=== PATIENT | female | born 1940 | race Caucasian/White ===

== ENCOUNTER 2019-01-02 12:42 | Emergency (ER) | payer OTHER ==
--- NOTE | 2019-01-02 13:05 | ED PDOC ---
HPI: Trauma/Fall - HPI Time Seen by Provider: 01/02/19 12:52 Chief Complaint (Nursing): Upper Extremity Problem/Injury Chief Complaint (Provider): Upper Extremity Problem/Injury History Per: Patient History/Exam Limitations: no limitations Onset/Duration Of Symptoms: Sudden Onset Injury Occurred (Timing): Just Before Arrival Additional Complaint(s): 78 year old female with no significant medical history, arrives to the emergency department status post fall while running on a treadmill at the gym prior to arrival. Patient states she fell onto her right side, striking the ground, and sustained injury to her face, right shoulder, and right elbow. She denies experiencing chest pain or palpations prior to event, nor, had loss of consciousness or dizziness at present. PCP: none provided Past Medical History Reviewed: Historical Data, Nursing Documentation, Vital Signs Vital Signs: Last Vital Signs Temp 98.1 F 01/02/19 12:48 Pulse 77 01/02/19 12:48 Resp 15 01/02/19 12:48 BP 130/81 01/02/19 12:48 Pulse Ox 97 01/02/19 12:48 - Medical History PMH: No Chronic Diseases - Family History Family History: States: Unknown Family Hx - Home Medications Home Medications: Ambulatory Orders Medication Instructions Recorded Acetaminophen with Codeine 1 tab PO Q8H #10 tab 01/02/19 [Tylenol with Codeine No. 3 300 mg-30 mg] - Allergies Allergies/Adverse Reactions: Allergies Allergy/AdvReac Type Severity Reaction Status Date / Time No Known Allergies Allergy Verified 01/02/19 12:46 Review of Systems ROS Statement: Except As Marked, All Systems Reviewed And Found Negative ENT: Positive for: Other (right facial pain) Cardiovascular: Negative for: Chest Pain, Palpitations Respiratory: Negative for: Shortness of Breath Musculoskeletal: Positive for: Shoulder Pain (right-sided), Arm Pain (right elbow) Neurological: Negative for: Dizziness (or LOC) Physical Exam - Reviewed Nursing Documentation Reviewed: Yes Vital Signs Reviewed: Yes - Physical Exam Eye Exam: Positive for: EOMI, PERRL, Periorbital swelling (right-sided), Periorbital tenderness (right-sided). Negative for: Other (palpable fracture) Neck: Positive for: Normal (without deformity), Painless ROM, Supple. Negative for: Pain On Movement Of Neck (posteriorly) Cardiovascular/Chest: Positive for: Regular Rate, Rhythm Respiratory: Positive for: Normal Breath Sounds. Negative for: Respiratory Distress Pulses-Radial (L): 2+ Pulses-Radial (R): 2+ Back: Negative for: Vertebral Tenderness (spinal), Other (hip tenderness or deformity) Extremity: Positive for: Tenderness (limited ROM of right shoulder), Swelling (right laterally epicondyle), Other (right shoulder abrasion). Negative for: Normal ROM, Deformity (or edema of right shoulder) Neurologic/Psych: Positive for: Alert, Oriented (x3). Negative for: Motor/Sensory Deficits - ECG O2 Sat by Pulse Oximetry: 97 (RA) Pulse Ox Interpretation: Normal Medical Decision Making Medical Decision Making: Time: 1300 Initial Plan: Will obtain imagings to rule fracture. * CT head * CT maxillofacial * Motrin 600mg PO * XR right elbow * XR pelvis * XR right shoulder Time: 1338 --CT head FINDINGS: HEMORRHAGE: No intracranial hemorrhage. BRAIN: Good corticomedullary differentiation is seen. Proportional, diffuse expansion of the ventriculosulcal and cisternal spaces is appreciated with white matter lucency compatible with diffuse cerebral atrophy and chronic microangiopathy. Dense calcifications are identified mildly at the bilateral basal ganglia. No suspicious extra-axial fluid collection is identified and the midline brain anatomy appears grossly nonfocal as imaged. There is no mass effect throughout. VENTRICLES: Unremarkable. No hydrocephalus. CALVARIUM: No destructive bony lesion or displaced fracture identified including through the skullbase. Limited right lateral periorbital soft tissue edema noted in subcutaneous facial fat. PARANASAL SINUSES: Unremarkable as visualized. No significant inflammatory changes. MASTOID AIR CELLS: Unremarkable as visualized. No inflammatory changes. OTHER FINDINGS: None. IMPRESSION: Mild age related neuro degenerative changes are appreciate which appear age- appropriate. No acute intracranial hemorrhage is identified, mass effect or cortical edema. Bilateral basal ganglia calcifications are identified. Incidental limited right lateral periorbital subcutaneous edema suspected. No u nderlying fracture identified or postseptal soft tissue pathology appreciable. Time: 1358 --CT maxillofacial FINDINGS: NASAL BONES: Unremarkable. ORBITS: Right lateral orbital postseptal soft tissue edema is seen without preseptal involvement. No related fracture. PARANASAL SINUSES/ MASTOIDS: Clear. MAXILLA: Fracture identified. Multiple apical abscess is seen related to the right 1st and 2nd molar roots with impacted 3rd molar identified. There is some resorption of bone related to multiple bilateral maxillary dental implants in this patient. MANDIBLE/ TEMPOROMANDIBULAR JOINTS: Resumption of bone seen related to multiple bilateral dental implants at the mandible. SKULL BASE: Unremarkable. TEMPORAL BONES: Middle ears and mastoid grossly unremarkable. OTHER FINDINGS: None. IMPRESSION: No definite fracture appreciated although limited right lateral postseptal orbital soft tissue edema is identified. Dental pathology as discussed above. Scribe Attestation: Documented by Sierra Garcia, acting as a scribe for Duane Palmer MD. Provider Scribe Attestation: All medical record entries made by the Scribe were at my direction and personally dictated by me. I have reviewed the chart and agree that the record accurately reflects my personal performance of the history, physical exam, medical decision making, and the department course for this patient. I have also personally directed, reviewed, and agree with the discharge instructions and disposition. Pt is aware of Dental pathology and is being followed by dentist for tx. Xray of clavicle reveals displaced fracture, no tenting of skin, no pneumothorax. Discussed with Dr. Fletcher, Pt to be placed in figure 8 clavicle strap and sling and can be followed as outpt. in office Disposition - Clinical Impression Clinical Impression: Clavicle fracture - Patient ED Disposition Is Patient to be Admitted: No Counseled Patient/Family Regarding: Studies Performed, Diagnosis, Need For Followup, Rx Given - Disposition Referrals: Jonathan Fletcher III, MD [Staff Provider] - Disposition: Routine/Home Disposition Time: 15:16 Condition: FAIR Prescriptions: Acetaminophen with Codeine [Tylenol with Codeine No. 3 300 mg-30 mg] 1 tab PO Q8H #10 tab Instructions: Clavicle Fracture Forms: [employer] (Malay)
--- NOTE | 2019-01-02 13:41 | CT ---
Date of service: 01/02/2019 PROCEDURE: CT HEAD WITHOUT CONTRAST. HISTORY: r/o bleed COMPARISON: None available. TECHNIQUE: Axial computed tomography images were obtained through the head/brain without intravenous contrast. Radiation dose: Total exam DLP = 863.0 mGy-cm. This CT exam was performed using one or more of the following dose reduction techniques: Automated exposure control, adjustment of the mA and/or kV according to patient size, and/or use of iterative reconstruction technique. FINDINGS: HEMORRHAGE: No intracranial hemorrhage. BRAIN: Good corticomedullary differentiation is seen. Proportional, diffuse expansion of the ventriculosulcal and cisternal spaces is appreciated with white matter lucency compatible with diffuse cerebral atrophy and chronic microangiopathy. Dense calcifications are identified mildly at the bilateral basal ganglia. No suspicious extra-axial fluid collection is identified and the midline brain anatomy appears grossly nonfocal as imaged. There is no mass effect throughout. VENTRICLES: Unremarkable. No hydrocephalus. CALVARIUM: No destructive bony lesion or displaced fracture identified including through the skullbase. Limited right lateral periorbital soft tissue edema noted in subcutaneous facial fat. PARANASAL SINUSES: Unremarkable as visualized. No significant inflammatory changes. MASTOID AIR CELLS: Unremarkable as visualized. No inflammatory changes. OTHER FINDINGS: None. IMPRESSION: Mild age related neuro degenerative changes are appreciate which appear age-appropriate. No acute intracranial hemorrhage is identified, mass effect or cortical edema. Bilateral basal ganglia calcifications are identified. Incidental limited right lateral periorbital subcutaneous edema suspected. No underlying fracture identified or postseptal soft tissue pathology appreciable.
--- NOTE | 2019-01-02 14:01 | CT ---
Date of service: 01/02/2019 PROCEDURE: CT MAXILLOFACIAL BONES WITHOUT CONTRAST HISTORY: trauma COMPARISON: None available. TECHNIQUE: Contiguous axial CT images of the maxillofacial bones were obtained. Coronal and sagittal reformats were generated. Radiation dose: Total exam DLP = 692.61 mGy-cm. This CT exam was performed using one or more of the following dose reduction techniques: Automated exposure control, adjustment of the mA and/or kV according to patient size, and/or use of iterative reconstruction technique. FINDINGS: NASAL BONES: Unremarkable. ORBITS: Right lateral orbital postseptal soft tissue edema is seen without preseptal involvement. No related fracture. PARANASAL SINUSES/ MASTOIDS: Clear. MAXILLA: Fracture identified. Multiple apical abscess is seen related to the right 1st and 2nd molar roots with impacted 3rd molar identified. There is some resorption of bone related to multiple bilateral maxillary dental implants in this patient. MANDIBLE/ TEMPOROMANDIBULAR JOINTS: Resumption of bone seen related to multiple bilateral dental implants at the mandible. SKULL BASE: Unremarkable. TEMPORAL BONES: Middle ears and mastoid grossly unremarkable. OTHER FINDINGS: None. IMPRESSION: No definite fracture appreciated although limited right lateral postseptal orbital soft tissue edema is identified. Dental pathology as discussed above.
[2019-01-02 15:52] VITALS: BP 130/78; PULSE 78; RESP 20; TEMP 97.6; O2SAT 98
--- NOTE | 2019-01-02 16:39 | RAD ---
Date of service: 01/02/2019 PROCEDURE: Radiographs of the Right Shoulder HISTORY: trauma COMPARISON: January 02, 2019 FINDINGS: BONES: Fracture midshaft right clavicle. Approximately 1 shaft's with overriding noted. Foreshortening of approximately 4 cm noted. No appreciable angulation identified. JOINTS: Normal. Glenohumeral and acromioclavicular joints preserved. No osteoarthritis. SOFT TISSUES: Normal. OTHER FINDINGS: None. IMPRESSION: Midshaft right clavicular fracture described in greater detail above
--- NOTE | 2019-01-02 16:40 | RAD ---
Date of service: 01/02/2019 PROCEDURE: Radiographs of the pelvis. HISTORY: trauma COMPARISON: None. FINDINGS: BONES: Pelvic Bones: Unremarkable. Hips: Grossly unremarkable. JOINTS: Sacroiliac Joints: Unremarkable. Pubic Symphysis: Unremarkable. OTHER FINDINGS: Calcifications in the pelvis likely related to uterine fibroids. IMPRESSION: No acute findings related to/ accounting for the clinical presentation. Limitations of the current examination: Single AP view only.
--- NOTE | 2019-01-02 16:40 | RAD ---
Date of service: 01/02/2019 PROCEDURE: Radiographs of the right elbow. HISTORY: trauma COMPARISON: No prior. FINDINGS: BONES: Normal. No fracture. JOINTS: Normal. No osteoarthritis. SOFT TISSUES: Normal. JOINT EFFUSION: None. OTHER FINDINGS: None. IMPRESSION: No acute findings related to/ accounting for the clinical presentation.
--- NOTE | 2019-01-02 16:42 | RAD ---
Date of service: 01/02/2019 PROCEDURE: Radiographs of the right clavicle. HISTORY: trauma COMPARISON: January 02, 2019 FINDINGS: RIGHT CLAVICLE: Acute fracture right clavicle. 4 cm of foreshortening noted. One shaft's with distraction identified. No appreciable angulation. JOINTS: Right acromioclavicular and glenohumeral joints are grossly unremarkable. SOFT TISSUES: Grossly unremarkable. OTHER FINDINGS: None. IMPRESSION: Acute right clavicular fracture.
--- NOTE | 2019-01-02 16:43 | RAD ---
Date of service: 01/02/2019 PROCEDURE: CHEST RADIOGRAPH, 1 VIEW HISTORY: fx clavicle COMPARISON: None available. FINDINGS: LUNGS: Clear. PLEURA: No pneumothorax or pleural fluid seen. CARDIOVASCULAR: No aortic atherosclerotic calcification present. Normal. OSSEOUS STRUCTURES: Known right clavicular fracture. VISUALIZED UPPER ABDOMEN: Normal. OTHER FINDINGS: None. IMPRESSION: No active pulmonary disease.
== END 2019-01-02 16:00 | disposition home or self-care (01) ==
LOC: H.ER 12:42
DX: S42.021A Displaced fracture of shaft of right clavicle, initial encounter for closed fracture (principal); W19.XXXA Unspecified fall, initial encounter; Y92.838 Other recreation area as the place of occurrence of the external cause